=== PATIENT | female | born 1985 | race Caucasian/White ===

== ENCOUNTER → 2017-06-13 | Outpatient (CLI) | payer OTHER | LOC: HPND 07:44 | PROVIDERS: ATTEND Obstetrics & Gynecology | DX: O34.32 Maternal care for cervical incompetence, second trimester (principal); O30.032 Twin pregnancy, monochorionic/diamniotic, second trimester; O09.292 Supervision of pregnancy with other poor reproductive or obstetric history, second trimester | CPT/HCPCS: 76811; 76812; 76817 ==

== ENCOUNTER → 2017-06-27 | Outpatient (CLI) | payer OTHER | LOC: HPND 09:02 | PROVIDERS: ATTEND Obstetrics & Gynecology | DX: O30.032 Twin pregnancy, monochorionic/diamniotic, second trimester (principal); O34.32 Maternal care for cervical incompetence, second trimester; O26.872 Cervical shortening, second trimester; O43.192 Other malformation of placenta, second trimester | CPT/HCPCS: 76815; 76817; 76825; 76827; 93325 ==

== ENCOUNTER → 2017-07-11 | Outpatient (CLI) | payer OTHER | LOC: HPND 10:00 | PROVIDERS: ATTEND Obstetrics & Gynecology | DX: O34.32 Maternal care for cervical incompetence, second trimester (principal); O30.032 Twin pregnancy, monochorionic/diamniotic, second trimester; O43.192 Other malformation of placenta, second trimester; O09.292 Supervision of pregnancy with other poor reproductive or obstetric history, second trimester | CPT/HCPCS: 76816; 76817 ==

== ENCOUNTER → 2017-07-25 | Outpatient (CLI) | payer OTHER | LOC: HPND 10:03 | PROVIDERS: ATTEND Obstetrics & Gynecology | DX: O30.032 Twin pregnancy, monochorionic/diamniotic, second trimester (principal); O34.32 Maternal care for cervical incompetence, second trimester | CPT/HCPCS: 76815; 76817 ==

== ENCOUNTER → 2017-08-08 | Outpatient (CLI) | payer OTHER | LOC: HPND 10:43 | PROVIDERS: ATTEND Obstetrics & Gynecology | DX: O30.032 Twin pregnancy, monochorionic/diamniotic, second trimester (principal); O34.32 Maternal care for cervical incompetence, second trimester | CPT/HCPCS: 76816; 76817 ==

== ENCOUNTER → 2017-08-22 | Outpatient (CLI) | payer OTHER | LOC: HPND 09:21 | PROVIDERS: ATTEND Obstetrics & Gynecology | DX: O30.033 Twin pregnancy, monochorionic/diamniotic, third trimester (principal) | CPT/HCPCS: 76815; 76820 ==

== ENCOUNTER 2017-10-12 10:31 | Inpatient (IN) | payer OTHER ==
--- NOTE | 2017-10-10 14:37 | MH ---
cc: Tha Akhtar MD DATE OF ADMISSION: 10/12/2017 HISTORY OF PRESENT ILLNESS: This patient is a 32-year-old G5, P2-1-1-2, who will be at 37 weeks and 2 days by her LMP and a 12-week ultrasound at the time of her delivery with estimated due date of 10/31/2017. She is admitted for a planned repeat because of an abdominal cerclage and current monochorionic diamniotic twin gestation. If she has any updates in her HPI, I will add these as an addendum. Her has been complicated by history of x 2, history of delivery x 1 at 21 weeks secondary to cervical insufficiency and a failed rescue cerclage, a current abdominal cerclage in place placed outside of this current , monochorionic diamniotic twin gestation, history of E. coli UTI, marginal cord insertion for baby B. PAST MEDICAL HISTORY: None. MEDICATIONS: 1. vitamins. 2. Aspirin 81 mg daily. 3. Calcium and vitamin D. ALLERGIES: NKDA. OBSTETRICAL HISTORY: 1. 02/2012, missed . No D and C needed at 10 weeks. 2. 12/2012, primary section at 41 weeks of a viable female , weighing 7 pounds 11 ounces, for nonreassuring heart tones. 3. 02/2015, 21-week vaginal delivery of a nonviable male , weighing 15 ounces. The patient had cervical insufficiency with a failed rescue Dickerson cerclage. 4. 05/2016, repeat at 39 weeks of a viable female weighing 8 pounds 1 ounce, scheduled repeat , had abdominal cerclage during that , otherwise uncomplicated. PAST SURGICAL HISTORY: 1. x 2. 2. Rescue Dickerson cerclage. 3. 2014, open abdominal cerclage. SOCIAL HISTORY: to her , Vasile, who is a family practitioner [place]. She denies any current tobacco, alcohol or drug use. FAMILY HISTORY: No pertinent positive family history. GYNECOLOGIC HISTORY: LMP 01/25/2017. Regular monthly cycles. No history of STDs. PHYSICAL EXAMINATION: Vitals will be updated at the time of her admission. Exam in the office prior to admission, on 10/03/2017. GENERAL: Alert and oriented x 3, no acute distress. LUNGS: Clear to auscultation bilaterally. CARDIAC: Regular rate and rhythm. No murmurs, rubs or gallops. ABDOMEN: Soft, gravid, nontender. Pfannenstiel scar present. GENITOURINARY: Deferred. EXTREMITIES: No clubbing, cyanosis or edema. LABORATORY DATA: Blood type A positive, antibody negative. 1st trimester hemoglobin 12.2, Rubella immune, VDRL nonreactive. Urine culture positive for E. coli. Hepatitis B surface antigen nonreactive. HIV negative. Gonorrhea and chlamydia negative. Cystic fibrosis screen negative. The patient declined any alpha fetoprotein or second trimester screening. Repeat hemoglobin at 28 weeks 11.7. One-hour Glucola 67. GBS not collected. ASSESSMENT AND PLAN: This patient is a 32-year-old 5, para 2-1-1-2 at 37 weeks and 2 days by last menstrual period consistent with 12-week ultrasound, here today for repeat section. 1. Monochorionic diamniotic twin gestation: The patient has had testing throughout the . The most recent growth on 10/01/2017, baby A weighing 2214 gm, in the 13th percentile and baby B weighing 2481 gm in the 32nd percentile. Placenta posterior fundal. MIREILLE and Dopplers are normal. - The patient is status post her flu vaccine and Tdap this . 2. History of section x 2. The patient is for planned repeat today. Does not desire tubal ligation. Discussed risks, benefits and alternative, and expected outcomes of repeat section including, but not limited to bleeding, scarring, infection, injury to surrounding organs, need for further surgery, risk of venous thromboembolism, hemorrhage and possible and/or maternal . 3. History of delivery. The patient currently has abdominal cerclage in place, will not remove today. The patient is aware of this. 4. Marginal cord insertion of baby B. Will send placenta to pathology. MD VALENTIN Ventura/STELLA , 01:51 PM , 02:35 PM TRAM
[2017-10-12] VITALS (8 sets, daily range): BP systolic 97–134; BP diastolic 54–78; PULSE 62–83; RESP 18–20; TEMP 97.2–98.7; O2SAT 97–100
[2017-10-12 11:22] LABS: AUTOMATED NEUTROPHIL # 9.7 TH/MM3 (1.8-7.7); BASOPHIL # 0.1 TH/MM3 (0-0.2); BASOPHIL % 0.8 % (0.0-2.0); EOSINOPHIL # 0.2 TH/MM3 (0-0.4); HEMATOCRIT 39.3 % (35.0-46.0); HEMOGLOBIN 13.3 GM/DL (11.6-15.3); LYMPH % 13.4 % (9.0-44.0); LYMPHOCYTE # 1.7 TH/MM3 (1.0-4.8); MEAN CELL VOLUME 91.3 FL (80.0-100.0); MEAN CORPUSCULAR HEMOGLOBIN 30.8 PG (27.0-34.0); MEAN CORPUSCULAR HGB CONC 33.7 % (32.0-36.0); MEAN PLATELET VOLUME 8.5 FL (7.0-11.0); MONO % 5.4 % (0.0-8.0); MONOCYTE # 0.7 TH/MM3 (0-0.9); NEUT % 78.4 % (16.0-70.0); PLATELET COUNT 293 TH/MM3 (150-450); RED BLOOD COUNT 4.31 MIL/MM3 (4.00-5.30); RED CELL DISTRIBUTION WIDTH 12.7 % (11.6-17.2); WHITE BLOOD COUNT 12.3 TH/MM3 (4.0-11.0)
[2017-10-12] MEDS ORDERED: ceFAZolin 2 GM PREMIX 50 ML IV SCH (11:30)
[2017-10-12] MEDS ORDERED: CITRIC ACID-SODIUM CITRATE LIQ 30 ML UDC PO SCH (11:30)
[2017-10-12 11:41] LABS: BACTERIA, URINE OCC /hpf; BILIRUBIN, URINE NEG (NEG); BLOOD, URINE NEG (NEG); GLUCOSE,URINE NEG (NEG); KETONE, URINE NEG (NEG); MUCUS URINE FEW /lpf (OCC); NITRITE,URINE NEG (NEG); SQUAMOUS EPITHELIAL CELL URINE 5 /hpf (0-5); URINE COLOR YELLOW (YELLW/STRAW); URINE LEUKOCYTE ESTERASE NEG (NEG)
[2017-10-12] MEDS ORDERED: PREN29TA PO (11:55)
[2017-10-12] MEDS ORDERED: FERR324T8 PO (11:55)
[2017-10-12] MEDS ORDERED: OXYTOCIN 10 UNIT/ML AMP IV ONE (12:00)
[2017-10-12] MEDS ORDERED: ONDANSETRON HCL 4 MG/2 ML VIAL IV ONE (12:00)
[2017-10-12] MEDS ORDERED: LACTATED RINGER'S 1000 ML IV SCH (12:00)
[2017-10-12] MEDS ORDERED: ceFAZolin INJ 1,000 MG VIAL IV ONE (12:00)
[2017-10-12] MEDS ORDERED: DEXAMETHASONE SOD PHOS 4 MG/ML VIAL IV ONE (12:00)
[2017-10-12] MEDS ORDERED: LACTATED RINGER'S 1000 ML INJ 2,000 ML IV ONE (12:00)
[2017-10-12] MEDS ORDERED: ePHEDrine/NS 25 MG/5 ML SYRINGE IV ONE (12:00)
[2017-10-12] MEDS ORDERED: LACTATED RINGER'S 1000 ML IV ONE (12:00)
[2017-10-12] MEDS ORDERED: ACETAMINOPHEN 1000 MG/100 ML 100 ML IV ONE ×2 (12:02→14:00)
[2017-10-12] MEDS ORDERED: MORPHINE SULFATE PF 5 MG/10 ML VIAL ONE (12:02)
[2017-10-12] MEDS ORDERED: EPIDURAL-DIPHENHYDRAMINE HCL 50 MG CAP PO PRN (12:05)
[2017-10-12] MEDS ORDERED: EPIDURAL-DIPHENHYDRAMINE HCL 50 MG/ML VIAL IV PUSH PRN (12:05)
[2017-10-12] MEDS ORDERED: EPIDURAL-NO SYSTEMIC NARCOTICS PRN (12:05)
[2017-10-12] MEDS ORDERED: EPIDURAL-NALOXONE HCL 0.4 MG/ML AMP IV PUSH PRN (12:05)
[2017-10-12] MEDS ORDERED: EPIDURAL-DO NOT ADMINISTER ANTICOAGULANTS PRN (12:05)
--- NOTE | 2017-10-12 13:46 | HHI.DCPOC ---
Discharge Care Plan Diagnosis: (1) Monochorionic diamniotic twin gestation in third trimester Your Health Problems Are: delivery Report Symptoms to Your Doctor -Temperature above 100.5 degrees -Redness, of incision or excessive or foul smelling drainage -Unusual pain or calf pain -Increased vaginal bleeding -Painful or difficulty urinating -Feelings of extreme sadness or anxiety after 2 weeks Goals to Promote Your Health * To prevent worsening of your condition and complications * To maintain your health at the optimal level Directions to Meet Your Goals Take your medications as prescribed Follow your dietary instruction Follow activity as directed Ensure plenty of rest for recovery Drink fluids for hydration Keep your appointments as scheduled Take your immunizations and boosters as scheduled If your symptoms worsen call your PCP, if no PCP go to Urgent Care Center or Emergency Room Smoking is Dangerous to Your Health. Avoid second hand smoke Call the 24-hour crisis hotline for domestic abuse at Tha Akhtar MD Oct 12, 2017 13:46
--- NOTE | 2017-10-12 13:49 | PD.OB.DELI ---
Procedure Note Section Procedure Pre Op Diagnosis: (1) Monochorionic diamniotic twin gestation in third trimester Post Op Diagnosis: Performed by Tha Akhtar Procedure: Repeat Low Transverse Sec Indication for delivery: Desired elective repeat Previous condition: Transabdominal Cerclage Informed consent obtained: For anesthesia, For procedure Confirmed correct: Patient Anesthesia: Spinal Medication prior to procedure: As documented in eMAR Monitoring during procedure: Blood pressure monitoring, Pulse oximetry Urinary catheter: Inserted using sterile technique Sterile preparation: Duraprep, With drapes to expose affected area Position: Supine with wedge to left side Operative Features Skin Incision: Pfannenstiel Uterine Incision: Low transverse w/knife / blunt ext Membranes Ruptured: Artificially, Appearance of fluid (clear) Presentation: Occiput anterior (baby a), Breech (baby b) Delivery date: Oct 12, 2017 Delivery time: 12:42 (Baby A 1242, Baby B 1244) Delivery of infant: Uneventful : Male (x2), Multiple One Minute : 8 (x2), 9 (x2) Status of infant: Viable Placenta delivered: Intact, Sent to pathology Medications: Antibiotics, Oxytocin Estimated blood loss: 800 Procedure tolerated: Well Maternal Complications: Other (none) Maternal Condition: Stable Condition: Stable Procedure in detail see dictated op note, dictation #[id number] Tha Akhtar MD Oct 12, 2017 13:49
[2017-10-12] MEDS ORDERED: IBUP-232 PO (13:52)
[2017-10-12] MEDS ORDERED: PERC5TAB12 PO (13:53)
[2017-10-12] MEDS ORDERED: OXYTOCIN 30 UNITS-500ML PREMIX 500 ML IV ONE (14:00)
[2017-10-12] MEDS ORDERED: ONDANSETRON HCL 4 MG/2 ML VIAL IV PUSH PRN (14:00)
[2017-10-12] MEDS ORDERED: SODIUM CHLORIDE 0.9% FLUSH 10 ML FLUSH IV FLUSH PRN (14:00)
[2017-10-12] MEDS ORDERED: oxyCODONE/ACETAMINOPHEN 5 MG/325 MG TAB PO PRN (14:00)
[2017-10-12] MEDS ORDERED: SIMETHICONE 80 MG CHEWABLE TAB PO PRN (14:00)
[2017-10-12] MEDS ORDERED: KETOROLAC TROMETHAMINE 60 MG/2 ML (IM) VIAL IM PRN (14:00)
[2017-10-12] MEDS ORDERED: OXYTOCIN 30 UNITS-500ML PREMIX 500 ML ONE (14:15)
--- NOTE | 2017-10-12 14:29 | MP ---
cc: Tha Akhtar MD DATE OF OPERATION: PREOPERATIVE DIAGNOSES: 1. Intrauterine at 37 weeks and 2 days. 2. History of section x 2, desiring repeat. 3. Monochorionic diamniotic twin gestation. 4. History of cervical insufficiency with abdominal cerclage in place. SURGEON: Tha Akhtar MD ASSISTANTS: [employer] surgical scrub staff and Medical student, Lupe Cheung, MS-3, was present and scrubbed throughout the case. ANTIBIOTICS: 2 gm Ancef preoperatively. FINDINGS: 1. Viable live newborns, Baby A, male, at 12:42, Apgars 8 and 9, Baby B, male , 12:44, Apgars 8 and 9. 2. Hypertrophic scar removed and disposed of. 3. Minimal subcutaneous scarring. Moderate intra-abdominal adhesions of the lower uterine segment to the anterior abdominal wall. Otherwise, normal-appearing uterus, fallopian tubes, and ovaries bilaterally. Abdominal cerclage in place. ESTIMATED BLOOD LOSS: 800 mL FLUID REPLACEMENT: 2000 mL URINE OUTPUT: 75 mL, clear via [place]. ANESTHESIA: Spinal with Astramorph. DVT PROPHYLAXIS: Sequential compression devices throughout the case. COUNTS: Correct x 2. TIMEOUT DONE: Correct. SPECIMENS: Placenta to pathology, routine; hypertrophic scar of the skin to disposal. COMPLICATIONS: None. INDICATIONS FOR PROCEDURE: This patient is a 32-year-old G5, P2-1-1-2, now P3-1-1-4, who presented for scheduled repeat section. Please see H and P for further details. DESCRIPTION OF PROCEDURE: The patient was taken to the operating room and spinal anesthesia was placed and found to be adequate. She was positioned in supine position with a left lateral tilt. Abdomen was prepped and draped in sterile fashion. A narrow ellipse incision was made to incorporate her previous hypertrophic scar, which was removed and with a scalpel, the subcutaneous tissue was dissected down to the fascia, which was extended on either side of the midline with Everett scissors. The fascia was dissected off the rectus muscle superiorly and inferiorly with Everett scissors. The peritoneum was entered sharply with the scalpel and there were moderately dense adhesions of the lower uterine segment to the anterior abdominal wall, which were dissected with the Bovie. The bladder blade was inserted, and the bladder was well away from the lower uterine segment. A curvilinear incision was made at the lower uterine segment and the hysterotomy was extended in a cephalad-caudad fashion. Inserted my hand into the uterine cavity and the head was elevated to the hysterotomy. amniotomy was performed. The head was delivered with fundal pressure and gentle downward guidance for the anterior and posterior shoulders. The torso and lower extremities followed with ease. Delayed cord clamping was performed and the was handed off to the NICU. Baby B was delivered via breech extraction without difficulty. Delayed cord clamping was performed and the placenta was delivered with manual extraction and fundal massage. The uterus was exteriorized and cleared free of clot and debris and closed with a double layer, first with 0 locking Vicryl, second with imbricating 0 Vicryl mostly for hemostasis. A [id number] suture was used on the hysterotomy as well as a serosal abrasion just above the hysterotomy to achieve hemostasis. The uterus was returned to the abdomen and the pelvis was irrigated. There was some diffuse oozing appreciated over the surgical site and Tyra powder was applied to the area. The rectus muscles were loosely reapproximated with interrupted 0 Vicryls. The fascia was closed with running, unlocked 0 Vicryl from left to right. The subcutaneous tissue was irrigated. Hemostasis was achieved. The skin was closed with 4-0 Monocryl in a subcuticular fashion. A pressure dressing was applied and the patient tolerated the procedure well. MD VALENTIN Ventura/STELLA , 02:05 PM , 02:29 PM TRAM
[2017-10-12] MEDS ORDERED: LACTATED RINGER'S 1000 ML INJ 1,000 ML IV SCH (18:49)
[2017-10-12] MEDS ORDERED: SODIUM CHLORIDE 0.9% FLUSH 10 ML FLUSH IV FLUSH SCH (21:00)
[2017-10-13] VITALS: BP 112/64; PULSE 67; RESP 18; TEMP 98.3; O2SAT 98
[2017-10-13] MEDS ORDERED: OXYTOCIN 30 UNITS-500ML PREMIX 500 ML IV PRN
[2017-10-13] MEDS: IBUPROFEN 600 MG TAB PO PRN ×3 (03:32→16:32)
[2017-10-13] MEDS: oxyCODONE/ACETAMINOPHEN 5 MG/325 MG TAB PO PRN ×4 (03:32→21:32)
[2017-10-13 04:00] VITALS: BP 97/59; PULSE 73; RESP 18; TEMP 98.4; O2SAT 97
[2017-10-13 07:29] LABS: BASOPHIL # 0.1 TH/MM3 (0-0.2); BASOPHIL % 0.4 % (0.0-2.0); EOSINOPHIL # 0.2 TH/MM3 (0-0.4); EOSINOPHIL % 1.9 % (0.0-4.0); HEMATOCRIT 33.3 % (35.0-46.0); HEMOGLOBIN 11.2 GM/DL (11.6-15.3); LYMPH % 14.6 % (9.0-44.0); LYMPHOCYTE # 1.9 TH/MM3 (1.0-4.8); MEAN CORPUSCULAR HGB CONC 33.7 % (32.0-36.0); MEAN PLATELET VOLUME 7.9 FL (7.0-11.0); MONO % 7.5 % (0.0-8.0); NEUT % 75.6 % (16.0-70.0); PLATELET COUNT 236 TH/MM3 (150-450); RED BLOOD COUNT 3.62 MIL/MM3 (4.00-5.30); RED CELL DISTRIBUTION WIDTH 12.9 % (11.6-17.2); WHITE BLOOD COUNT 13.2 TH/MM3 (4.0-11.0)
[2017-10-13 08:45] VITALS: BP 96/68; PULSE 77; RESP 16; TEMP 98
[2017-10-13] MEDS: DOCUSATE SODIUM 50 MG/SENNA 8.6 MG TAB PO PRN (09:31)
--- NOTE | 2017-10-13 09:31 | HHI.OB ---
Subjective Post Operative Day: 1 Objective Vitals/I&O Vital Signs Date Time Temp Pulse Resp B/P (MAP) Pulse Ox O2 Delivery O2 Flow Rate FiO2 10/13/17 04:00 98.4 73 18 97/59 (72) 97 10/13/17 00:00 112/64 (80) 10/13/17 00:00 98.3 67 18 98 10/12/17 20:00 74 18 97/60 (72) 10/12/17 20:00 98.2 97 10/12/17 14:45 97.6 68 20 130/69 (89) 99 10/12/17 14:30 62 99 10/12/17 14:30 113/54 (73) 10/12/17 14:27 20 10/12/17 14:15 123/57 (79) 10/12/17 14:15 97.8 10/12/17 14:15 64 18 100 10/12/17 13:45 97.2 83 20 118/59 (78) 99 10/12/17 11:15 98.7 20 10/12/17 11:08 83 134/78 (96) Result Diagram: 10/13/17 0642 Objective Remarks GENERAL: Well-nourished, well-developed patient. CARDIOVASCULAR: Regular rate and rhythm without murmurs, gallops, or rubs. RESPIRATORY: Breath sounds equal bilaterally. No accessory muscle use. ABDOMEN/GI: Abdomen soft, non-tender, bowel sounds present. Incision: dressing Clean, dry and intact. Fundus: Firm, non-tender at umbilicus. GENITOURINARY: Light to moderate bleeding. EXTREMITIES: No cyanosis or edema, non-tender, without signs of DVT. Medications and IVs Current Medications Medications (Trade) Dose Ordered Sig/Todd Route Start Time Stop Time Status Last Admin Lactated Ringer's 1,000 ml @ 150 mls/hr Q6H40M IV 10/12/17 12:00 10/12/17 11:56 (Bicitra Liq) 30 ml [employer] PO 10/12/17 11:30 10/15/17 11:29 10/12/17 11:56 Cefazolin Sodium/ Dextrose 50 ml @ 100 mls/hr [employer] IV 10/12/17 11:30 10/15/17 11:29 Lactated Ringer's 1,000 ml @ 100 mls/hr Q10H IV 10/12/17 18:49 10/13/17 14:48 Oxytocin 500 ml @ 100 mls/hr UNSCH X1 PRN IV 10/13/17 00:00 10/13/17 23:59 (NS Flush) 2 ml BID IV FLUSH 10/12/17 21:00 (NS Flush) 2 ml UNSCH PRN IV FLUSH 10/12/17 14:00 (Mylicon Chew) 80 mg QID PRN PO 10/12/17 14:00 (Motrin) 600 mg Q6H PRN PO 10/12/17 14:00 10/13/17 03:32 (Toradol Inj) 30 mg Q6H PRN IM 10/12/17 14:00 10/13/17 13:59 10/12/17 20:15 (Percocet 5-325 Mg) 1 tab Q4H PRN PO 10/12/17 14:00 10/13/17 03:32 (Percocet 5-325 Mg) 2 tab Q4H PRN PO 10/12/17 14:00 (Demi-Colace) 2 tab Q12H PRN PO 10/12/17 14:00 (M-M-R Ii Inj) 0.5 ml ONCE ONCE SQ 10/13/17 16:00 10/13/17 16:01 (Boostrix Inj) 0.5 ml ONCE ONCE IM 10/13/17 16:00 10/13/17 16:01 (Zofran Inj) 4 mg Q6H PRN IV PUSH 10/12/17 14:00 Miscellaneous Information NO SYSTEMIC NARCOTICS TO BE GIVEN FO... UNSCH PRN .XX 10/12/17 12:05 10/13/17 12:04 (Narcan Inj) 0.4 mg UNSCH PRN IV PUSH 10/12/17 12:05 10/13/17 12:04 (Benadryl Inj) 25 mg Q6H PRN IV PUSH 10/12/17 12:05 10/13/17 12:04 (Benadryl) 50 mg Q6H PRN PO 10/12/17 12:05 10/13/17 12:04 Miscellaneous Information ALL NURSING DEPARTMENTS UNSCH PRN .XX 4/6/18 12:05 10/13/17 12:04 Assessment/Plan Problem List: (1) Monochorionic diamniotic twin gestation in third trimester ICD Codes: O30.033 - Twin , monochorionic/diamniotic, third trimester Assessment and Plan POD 1 CD for mono/di twins and abdominal cerclage Cont routine postop care, adv diet, ambulate Dispo pod 2-3 Monica Lara MD Oct 13, 2017 09:31
[2017-10-13] MEDS ORDERED: MEASLES, MUMPS, RUBELLA VACCINE 0.5 ML VIAL SQ ONE (16:00)
[2017-10-13] MEDS ORDERED: DIPHTH/TETANUS/ACEL PERTUSSIS (BOOSTER) 0.5 ML VIAL/PFS IM ONE (16:00)
[2017-10-13 20:00] VITALS: BP 111/65; PULSE 67; RESP 18; TEMP 98.3
[2017-10-14] MEDS: oxyCODONE/ACETAMINOPHEN 5 MG/325 MG TAB PO PRN ×2 (01:18→09:53)
[2017-10-14] MEDS: IBUPROFEN 600 MG TAB PO PRN ×2 (01:18→09:53)
[2017-10-14 08:30] VITALS: BP 118/66; PULSE 91; RESP 18; TEMP 97.7
--- NOTE | 2017-10-14 08:51 | HHI.OB ---
Subjective Post Operative Day: 2 Remarks Doing well, babies cleared for d/c. would likely want to go home today Objective Vitals/I&O Vital Signs Date Time Temp Pulse Resp B/P (MAP) Pulse Ox O2 Delivery O2 Flow Rate FiO2 10/13/17 20:00 98.3 67 18 10/13/17 20:00 111/65 (80) Result Diagram: 10/13/17 0642 Objective Remarks GENERAL: Well-nourished, well-developed patient. CARDIOVASCULAR: Regular rate and rhythm without murmurs, gallops, or rubs. RESPIRATORY: Breath sounds equal bilaterally. No accessory muscle use. ABDOMEN/GI: Abdomen soft, non-tender, bowel sounds present. Incision: Clean, dry and intact. Fundus: Firm, non-tender at umbilicus. GENITOURINARY: Light to moderate bleeding. EXTREMITIES: No cyanosis or edema, non-tender, without signs of DVT. Medications and IVs Current Medications Medications (Trade) Dose Ordered Sig/Todd Route Start Time Stop Time Status Last Admin Lactated Ringer's 1,000 ml @ 150 mls/hr Q6H40M IV 10/12/17 12:00 10/12/17 11:56 (Bicitra Liq) 30 ml [employer]CTION WORKER PO 10/12/17 11:30 10/15/17 11:29 10/12/17 11:56 Cefazolin Sodium/ Dextrose 50 ml @ 100 mls/hr SUCTION WORKER IV 10/12/17 11:30 10/15/17 11:29 (NS Flush) 2 ml BID IV FLUSH 10/12/17 21:00 (NS Flush) 2 ml UNSCH PRN IV FLUSH 10/12/17 14:00 (Mylicon Chew) 80 mg QID PRN PO 10/12/17 14:00 (Motrin) 600 mg Q6H PRN PO 10/12/17 14:00 10/14/17 01:18 (Percocet 5-325 Mg) 1 tab Q4H PRN PO 10/12/17 14:00 10/14/17 01:18 (Percocet 5-325 Mg) 2 tab Q4H PRN PO 10/12/17 14:00 (Demi-Colace) 2 tab Q12H PRN PO 10/12/17 14:00 10/13/17 09:31 (Zofran Inj) 4 mg Q6H PRN IV PUSH 10/12/17 14:00 Assessment/Plan Problem List: (1) Monochorionic diamniotic twin gestation in third trimester ICD Codes: O30.033 - Twin , monochorionic/diamniotic, third trimester Assessment and Plan POD 2 CD for mono/di twins and abdominal cerclage Cont routine postop care, support Dispo pod 2 Monica Lara MD Oct 14, 2017 08:51
[2017-10-14] MEDS: DOCUSATE SODIUM 50 MG/SENNA 8.6 MG TAB PO PRN (09:52)
== END 2017-10-14 13:30 | disposition home or self-care (01) | DRG 765 ==
LOC: H2EB 10:31 → H1EA 14:51
PROVIDERS: ADMIT Obstetrics & Gynecology; ATTEND Obstetrics & Gynecology
PROC: 10D00Z1 Extraction of Products of Conception, Low, Open Approach (ICD-10-PCS; principal; 2017-10-12)
DX: O34.211 Maternal care for low transverse scar from previous cesarean delivery (principal); O30.033 Twin pregnancy, monochorionic/diamniotic, third trimester; O99.72 Diseases of the skin and subcutaneous tissue complicating childbirth; O34.30 Maternal care for cervical incompetence, unspecified trimester; O43.193 Other malformation of placenta, third trimester; L91.0 Hypertrophic scar; Z37.2 Twins, both liveborn; Z3A.37 37 weeks gestation of pregnancy; Z23 Encounter for immunization
CPT/HCPCS: 59025; 76818; 76820; 80307; 81001; 85025; 86850; 86900; 86901; 86920; 88307; J0131; J0690; J1100; J1885; J2274; J2405; J2590; J3010; J7120